=== PATIENT | male | born 1960 | race Caucasian/White ===

== ENCOUNTER → 2025-06-02 | Outpatient (CLI) | payer MEDICARE, SELFPAY ==
[2025-06-02 16:21] LABS: Partial Thromboplast Time 34.3 Seconds (24.1-36.2); Prothrombin Time (Protime)PT. 15.2 SECONDS (11.7-14.9)
[2025-06-02 16:31] LABS: AST(SGOT) 61 U/L (<=37); Alanine Aminotransfer ALT/SGPT 67 U/L (<=46); Albumin, Serum 3.5 g/dL (3.4-4.8); Alkaline Phosphatase 153 U/L (40-129); Anion Gap 10 (5-15); BUN 27 mg/dL (4-19); BUN/Creat Ratio 26.2 RATIO (10-20); Calcium,Total 9.7 mg/dL (7.6-11.0); Carbon Dioxide 24.4 mmol/L (21.0-32.0); Chloride 104 mmol/L (98-108); Ferritin 399 ng/mL (37-417); Globulin 5.1 g/dL (2.2-4.2); Glucose 125 mg/dL (70-99); Hepatitis C Antibody Nonreactive (Nonreactive); Potassium 4.3 mmol/L (3.3-5.1)
[2025-06-04 05:07] LABS: Alpha Antitrypsin Serum 129 mg/dL (101-187)
[2025-06-04 15:08] LABS: Anti-Smooth Muscle ABS 46 Units (0-19)
== END | disposition home or self-care (01) ==
PROVIDERS: PCP Family Medicine; Referring Provider Internal Medicine Gastroenterology; Visit Provider Internal Medicine Gastroenterology
DX: K74.60 Unspecified cirrhosis of liver (principal)
CPT/HCPCS: 36415; 80053; 82103; 82105; 82728; 83516; 85610; 85730; 86803